=== PATIENT | male | born 1990 | race Caucasian/White ===

== ENCOUNTER 2019-10-20 11:53 | Day surgery (SDC) | payer OTHER ==
--- NOTE | 2019-10-20 15:23 | CR ---
Lumbar spine: AP, lateral, flexion and extension lateral, oblique and coned-down lateral view centered to the lumbosacral junction. Comparison: No prior lumbar spine imaging. Findings: Disc space at L5-S1 is slightly narrowed believed to represent transitional segment. Other disc spaces are maintained. No abnormal subluxation is seen. No spondylolysis is noted on the oblique views. No spondylolisthesis is seen on flexion and extension. Pedicles are intact. Transverse and spinous processes are intact. Impression: 1. Transitional segment at the lumbosacral junction. 2. Lumbar spine study is otherwise unremarkable. Diagnostic code #2 This report was dictated in [place] Standard Time
--- NOTE | 2019-10-20 19:21 | OR ---
SURGEON: Arti Ferrell D.O. DATE OF PROCEDURE: 10/20/2019 PRIMARY SURGEON: Arti Ferrell D.O. LOCOMOTIVE OBSERVER: OR staff present: 1. Rene Thurman RN. 2. Weston Lugo RN. 3. Tiffanie Rocha RT. WOUND CLASS: I. PREOPERATIVE DIAGNOSES: 1. L4-L5 lumbar herniated disk. 2. L5-S1 disk protrusion. 3. Right S1 radiculopathy. 4. 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 POSTOPERATIVE DIAGNOSES: 1. L4-L5 lumbar herniated disk. 2. L5-S1 disk protrusion. 3. Right S1 radiculopathy. 4. 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 PROCEDURES PERFORMED: 1. Transforaminal epidural steroid injection on the right at L4. 2. Transforaminal epidural steroid injection on the right at S1. 3. Fluoroscopic guidance for needle placement. 4. Local with oral Valium for sedation. SCREENING QUESTIONS: The patient answered "no" to all of the following questions: 1. Are you allergic to iodine, Betadine or latex? 2. Do you have a bleeding disorder? 3. Do you have any joint replacements, heart valve replacements, or a pacemaker? 4. Are you allergic to anti-inflammatories or blood thinners? 5. Do you have any current local or systemic infections? DESCRIPTION OF PROCEDURE: The patient had the procedure thoroughly explained including risks, benefits and alternatives. Consent was signed in my clinic indicating understanding and willingness to proceed. The patient presented to [facility] [place] where the patient was escorted to the dressing room to disrobe and change into a hospital gown. Preoperative vital signs were taken and stable. The patient reported that Valium was taken prior to the procedure. The patient was brought to the procedure room and placed in the prone position on the table. A pillow was placed under the abdomen in order to flatten the lumbar lordosis. The back was prepped with ChloraPrep and sterilely draped. All personnel in the operating room were dressed in appropriate attire including surgical scrubs, head and shoe covers. This was to ensure sterility while in the treatment room. During the time fluoroscopy was in use, all personnel in the operating room wore lead stevens with thyroid collars. Sterile technique was used during the procedure. The fluoroscope was placed for the L4 transforaminal epidural steroid injection. There was no sign of infection at the skin site for needle insertion. The skin was anesthetized with 2% lidocaine with a 27 gauge 1-1/2 inch needle. Then a 22 gauge 3-1/2 inch spinal needle, advanced to the L4. Under direct fluoroscopic guidance needle position was verified in three views; AP, oblique and lateral, with 0.2 cubic centimeters increments of Isovue-200 dye. No intravascular flow pattern was observed under live fluoroscopy. Then 6 milligrams of Celestone was slowly injected after negative aspiration of heme, cerebrospinal fluid and no paresthesias were noted. The needle was cleared prior to removal from the skin. The fluoroscope was placed for the right S1 transforaminal epidural steroid injection. There was no sign of infection at the skin site for needle insertion. The skin was anesthetized with 2% lidocaine with a 27 gauge 1-1/2 inch needle. Then a 22 gauge 3-1/2 inch spinal needle, advanced to the right S1. Under direct fluoroscopic guidance needle position was verified in three views; AP, oblique and lateral, with 0.2 cubic centimeters increments of Isovue- 200 dye. No intravascular flow pattern was observed under live fluoroscopy. Then 12 milligrams of Celestone was slowly injected after negative aspiration of heme, cerebrospinal fluid and no paresthesias were noted. The needle was cleared prior to removal from the skin. No adverse reactions were noted. The patient was brought to the recovery room awake and in good condition by my staff. The patient was monitored and discharge instructions were given after a brief stay in the recovery area. Both oral and written discharge and follow up instructions were given. The patient will follow up in the clinic in 3-4 weeks post procedure to evaluate the efficacy. The patient verbalized understanding including understanding of those signs and symptoms that would require emergency care and knows how to contact the office if there are any problems or questions in the meantime. PREOPERATIVE PAIN: /10. POSTOPERATIVE PAIN: 02/11. FOLLOWUP: Follow up in the Pain Clinic in 3 weeks. HOGGEREMIAS / TAI /[id number] DELORES
== END 2019-10-20 15:40 | disposition home or self-care (01) ==
LOC: MW.SDS 11:53
PROVIDERS: ATTEND Anesthesiology
DX: G89.29 Other chronic pain (principal); M51.16 Intervertebral disc disorders with radiculopathy, lumbar region; M51.17 Intervertebral disc disorders with radiculopathy, lumbosacral region; M53.3 Sacrococcygeal disorders, not elsewhere classified; M21.70 Unequal limb length (acquired), unspecified site; M79.18 Myalgia, other site; Q76.49 Other congenital malformations of spine, not associated with scoliosis; Z79.1 Long term (current) use of non-steroidal anti-inflammatories (NSAID)
CPT/HCPCS: 72114; 72114-26

== ENCOUNTER 2019-10-29 11:30 | Emergency (ER) | payer OTHER ==
[2019-10-29] MEDS ORDERED: HYDROmorphone 1 MG/ML Syringe IM ONE (11:59)
--- NOTE | 2019-10-29 12:12 | EDM.PDOC ---
ED HPI GENERAL MEDICAL PROBLEM - General Chief Complaint: Back Pain or Injury Stated Complaint: BACK INJURY Time Seen by Provider: 10/29/19 11:42 Source of Information: Reports: Patient History Limitations: Reports: No Limitations - History of Present Illness INITIAL COMMENTS - FREE TEXT/NARRATIVE: HISTORY AND PHYSICAL: History of present illness: Patient is a 28-year-old male who presents to the emergency room with complaints of lumbar back pain. He states this has been ongoing for several months and has seen Dr. Lipscomb and Dr Ferrell for this. She recently had imaging done which showed L4-L5 disc herniation. States he has been participating in physical therapy. Was seen by Dr. Ferrell on 10/20/19 and did have steroid injection at that time. He was also started on Lyrica given a prescription for Florence 7.5/325 (#30). He states that he is out of this medication, although did not feel it improved his symptoms at all. He is requesting medication refill or "something stronger". Since he recently had imaging a little over a week ago, he has not had any new injury, trauma or falls. He has been ambulatory although he states it is painful to start moving. Denies any urinary or fecal incontinence. Denies any numbness, tingling or saddle paresthesias. Patient denies any fever, chills, headache, change in vision, syncope or near syncope. Denies any chest pain, back pain, shortness of breath or cough. Denies any GI or symptoms. Patient has been eating and drinking appropriately. Review of systems: As per history of present illness and below otherwise all systems reviewed and negative. Past medical history: As per history of present illness and as reviewed below otherwise noncontributory. Surgical history: As per history of present illness and as reviewed below otherwise noncontributory. Social history: See social history for further information Family history: As per history of present illness and as reviewed below otherwise noncontributory. Physical exam: General: HEENT: Atraumatic, normocephalic, pupils equal and reactive bilaterally, negative for conjunctival pallor or scleral icterus, mucous membranes moist, trachea midline. No drooling or trismus noted. No meningeal signs. No hot potato voice noted. Lungs: Clear to auscultation, breath sounds equal bilaterally, chest nontender. Heart: S1S2, regular rate and rhythm without overt murmur Abdomen: Soft, nondistended, nontender. Negative for masses or costovertebral tenderness. Pelvis: Stable nontender. C-spine/Back: No pinpoint vertebral tenderness upon palpation. No crepitus, step -offs or obvious deformities. Muscular tenderness to right lumbar muscular region into the hip. Patient is ambulatory into the emergency room without difficulty or deficit. Able to rock back on heels and walk on toes. Denies any urinary or fecal incontinence. Denies any numbness, tingling or saddle paresthesia. Skin: Intact, warm, dry. No lesions or rashes noted. Extremities: Atraumatic, moves all extremities per self without difficulty or deficits, negative for cords or calf pain. Neurovascular unremarkable. Neuro: Awake, alert, oriented. Cranial nerves II through XII unremarkable. Cerebellum unremarkable. Motor and sensory unremarkable throughout. Exam nonfocal. Notes: Patient states he is in unbearable pain. He is moving freely on the chair and bending/twisting freely. He declines any further imaging at this time. I will give him a one-time dose of IM medication. I did call Dr. Webb's nurse who states he just had Florence filled a week ago and was informed he could only take one tablet. Patient will not receive any narcotics per prescription. We'll give diclofenac and educate him to follow-up sooner if needed with his previous doctors, Dr. Webb and Deisi. Supportive care measures were reviewed and discussed. Voices understanding and is agreeable to plan of care. Denies any further questions or concerns at this time. Diagnostics: Declined Therapeutics: Dilaudid IM Prescription: Diclofenac (#30) Impression: Encounter for medication refill Encounter for pain management Chronic back pain Plan: 1. You need to follow up with Dr Ferrell for further narcotic scripts for your back pain. Call to see if you can expedite your appointment 2. Take your medications as directed. 3. Return to the ED as needed and as discussed. Definitive disposition and diagnosis as appropriate pending reevaluation and review of above. right back pain Pain Score (Numeric/FACES): 10 - Related Data Allergies Allergy/AdvReac Type Severity Reaction Status Date / Time No Known Allergies Allergy Verified 10/20/19 12:09 Home Meds: Home Meds Diclofenac Sodium [Voltaren] 75 mg PO BIDMEALS PRN #30 tab.cr 10/29/19 [Rx] Hydrocodone/Acetaminophen [Hydrocodon-Acetaminophen 5-325] 10/29/19 [History] Pregabalin [Lyrica] 10/29/19 [History] Past Medical History Other Musculoskeletal History: herniated disc L4-L5. bulging discs Social & Family History - Family History Family Medical History: Noncontributory - Tobacco Use Smoking Status *Q: Never Smoker - Recreational Drug Use Recreational Drug Use: No ED ROS GENERAL - Review of Systems Review Of Systems: Comprehensive ROS is negative, except as noted in HPI. ED EXAM,LOWER BACK PAIN/INJURY - Physical Exam Exam: See Below (See dictation) Course - Vital Signs Last Recorded V/S: Last Vital Signs Temp 96.6 F 10/29/19 11:46 Pulse 78 10/29/19 11:46 Resp 20 10/29/19 11:46 BP 135/96 H 10/29/19 11:46 Pulse Ox 96 10/29/19 11:46 - Orders/Labs/Meds Meds: Medications Discontinued Medications Generic Name Dose Route Start Last Admin Trade Name Freq PRN Reason Stop Dose Admin Hydromorphone HCl 1 mg 10/29/19 11:59 Dilaudid IM 10/29/19 12:00 ONETIME ONE Departure - Departure Time of Disposition: 12:04 Disposition: Home, Self-Care 01 Clinical Impression: Encounter for medication refill, Encounter for pain management Back pain Qualifiers: Back pain location: low back pain Chronicity: chronic Back pain laterality: right Sciatica presence: with sciatica Sciatica laterality: sciatica of right side Qualified Code(s): M54.41 - Lumbago with sciatica, right side; G89.29 - Other chronic pain - Discharge Information Prescriptions: Diclofenac Sodium [Voltaren] 75 mg PO BIDMEALS PRN #30 tab.cr PRN Reason: Pain Instructions: Chronic Back Pain, [id number] Referrals: Jeyson Lipscomb MD [Primary Care Provider] - Forms: ED Department Discharge Additional Instructions: The following information is given to patients seen in the emergency department who are being discharged to home. This information is to outline your options for follow-up care. We provide all patients seen in our emergency department with a follow-up referral. The need for follow-up, as well as the timing and circumstances, are variable depending upon the specifics of your emergency department visit. If you don't have a primary care physician on staff, we will provide you with a referral. We always advise you to contact your personal physician following an emergency department visit to inform them of the circumstance of the visit and for follow-up with them and/or the need for any referrals to a consulting specialist. The emergency department will also refer you to a specialist when appropriate. This referral assures that you have the opportunity for follow-up care with a specialist. All of these measure are taken in an effort to provide you with optimal care, which includes your follow-up. Under all circumstances we always encourage you to contact your private physician who remains a resource for coordinating your care. When calling for follow-up care, please make the office aware that this follow-up is from your recent emergency room visit. If for any reason you are refused follow-up, please contact the [facility] Emergency Department at and asked to speak to the emergency department charge nurse. [facility] [address] [place] [id number] [address] [address] 1. You need to follow up with Dr Ferrell for further narcotic scripts for your back pain. Call to see if you can expedite your appointment 2. Take your medications as directed. 3. Return to the ED as needed and as discussed. Sepsis Event Note - Evaluation Sepsis Screening Result: No Definite Risk - Focused Exam Vital Signs: Vital Signs Temp Pulse Resp BP Pulse Ox 10/29/19 11:46 96.6 F 78 20 135/96 H 96 Date Exam was Performed: 10/29/19 Time Exam was Performed: 12:13
== END 2019-10-29 12:52 | disposition home or self-care (01) ==
LOC: MW.ED 11:30
DX: M54.41 Lumbago with sciatica, right side (principal); Z76.0 Encounter for issue of repeat prescription; Z79.899 Other long term (current) drug therapy
CPT/HCPCS: 96372; 99283; J1170